=== PATIENT | male | born 1935 | race Caucasian/White ===

== ENCOUNTER 2017-11-17 11:32 | Inpatient (IN) | payer OTHER, MEDICARE ==
[~2017-11-17] VITALS: Ht 167.6 cm; Wt 86.2 kg
[2017-11-17] VITALS (9 sets, daily range): BP systolic 106–159; BP diastolic 62–81; PULSE 94–144; RESP 16–22; TEMP 99.6; O2SAT 93–97
[~2017-11-17 11:32] MED LIST: ATOR10 PO; CEFT500T PO; GLUCTAB; GUAI100S6 PO; PIOG15; PROVENTIL HFA INH; ZITH500T PO
[2017-11-17] MEDS ORDERED: SODIUM CHLORIDE 0.9% FLUSH 10 ML FLUSH IVF PRN (12:00)
[2017-11-17] MEDS ORDERED: SODIUM CHLORIDE 0.9% FLUSH 10 ML FLUSH IV FLUSH PRN ×2 (12:00→14:00)
--- NOTE | 2017-11-17 12:00 | PD ---
HPI Chief Complaint: Cardiac Complaint Time Seen by Provider: 11:49 Travel History International Travel<30 days: No Contact w/Intl Traveler<30days: No Traveled to known affect area: No History of Present Illness HPI 81-year-old male patient with history of atrial fibrillation, hypertension, diabetes, presents to the ER today because he states that he has not been feeling well over last few weeks, getting short of breath, and has been trying to follow-up with his primary care doctor, he has had some low-grade fevers as well, and primary care found that he was having fast heart rate in the 140s, and has sent him in for further evaluation. On initial evaluation by EMS, he was in A. fib with rapid ventricular response, he was given Cardizem 20. He denies any current chest pains, abdominal pains, vomiting, or other issues. Modifying Factors: None Associated Signs & Symptoms: Not feeling well, palpitations, dyspnea on exertion , coughing, low-grade fevers Risk Factors: Elderly, A. fib PFSH Past Medical History Arthritis: Yes Atrial Fibrillation: Yes Heart Rhythm Problems: Yes Cancer: No Cardiovascular Problems: Yes High Cholesterol: Yes Chest Pain: No Congestive Heart Failure: No Cerebrovascular Accident: No Diabetes: Yes Patient Takes Glucophage: Yes Diminished Hearing: Yes ([place]) Endocrine: Yes Genitourinary: No Hypertension: Yes Musculoskeletal: Yes Neurologic: No Psychiatric: No Reproductive: No Respiratory: No Past Surgical History Abdominal Surgery: No Cardiac Surgery: No Ear Surgery: No Endocrine Surgery: No Eye Surgery: No Genitourinary Surgery: No Gynecologic Surgery: No Oral Surgery: No Thoracic Surgery: No Social History Alcohol Use: Yes (W[place] OCCASSIONALLY) Tobacco Use: No Substance Use: No Allergies-Medications (Allergen,Severity, Reaction): Coded Allergies: No Known Allergies (Verified Allergy, Unknown, 11/17/17) Reported Meds & Prescriptions Reported Meds & Active Scripts Active Reported Triamcinolone Topical (Triamcinolone Acetonide) 0.1 % Oint 1 Applic TOPICAL BID Meclizine (Meclizine HCl) 12.5 Mg Tab 12.5 Mg PO TID PRN Polyethylene Glycol 3350 Powder (Polyethylene Glycol) 17 Gram Pow 17 Gm PO DAILY Docusate Sodium 100 Mg Cap 100 Mg PO DAILY Enalapril (Enalapril Maleate) 2.5 Mg Tab 2.5 Mg PO DAILY Simvastatin 40 Mg Tab 40 Mg PO HS Ketoconazole Topical 2% Cream 1 Applic TOPICAL BID [place] Respiclick Inh (Fluticasone Propionate) 55 Mcg/Actuation Aer.pow.ba 55 Mg INH BID Aspirin 325 Mg Tab 325 Mg PO DAILY Propranolol (Propranolol HCl) 20 Mg Tab 20 Mg PO BID Sertraline (Sertraline HCl) 100 Mg Tab 100 Mg PO DAILY Januvia (Sitagliptin Phosphate) 100 Mg Tab 100 Mg PO DAILY Metformin (Metformin HCl) 850 Mg Tab 850 Mg PO TIDPC Betamethasone Valerate Topical 0.1% Cream 1 Applic TOPICAL BID Trazodone (Trazodone HCl) 50 Mg Tab 50 Mg PO HS Buspirone (Buspirone HCl) 5 Mg Tab 5 Mg PO TID Primidone 50 Mg Tab 50 Mg PO BID Prednisone 5 Mg Tab 5 Mg PO DAILY Tessalon Perles (Benzonatate) 100 Mg Cap 100 Mg PO TID PRN Levaquin (Levofloxacin) 500 Mg Tablet 500 Mg PO DAILY Review of Systems Except as stated in HPI: all other systems reviewed are Neg Physical Exam Narrative GENERAL: Well-developed elderly male patient currently in mild distress. Awake and oriented 3. SKIN: Focused skin assessment warm/dry. HEAD: Atraumatic. Normocephalic. EYES: Pupils equal and round. No scleral icterus. No injection or drainage. ENT: No nasal bleeding or discharge. Mucous membranes pink and moist. NECK: Trachea midline. No JVD. Supple. CARDIOVASCULAR: Fast and irregularly irregular. RESPIRATORY: No accessory muscle use. Decreased throughout. Breath sounds equal bilaterally. GASTROINTESTINAL: Abdomen soft, non-tender, nondistended. Hepatic and splenic margins not palpable. MUSCULOSKELETAL: No obvious deformities. No clubbing. No cyanosis. No edema. NEUROLOGICAL: Awake and alert. No obvious cranial nerve deficits. Motor grossly within normal limits. Normal speech. PSYCHIATRIC: Appropriate mood and affect; insight and judgment normal. Data Data Last Documented VS Vital Signs Date Time Temp Pulse Resp B/P (MAP) Pulse Ox O2 Delivery O2 Flow Rate FiO2 11/17/17 13:17 117 18 153/72 (99) 96 Nasal Cannula 2.00 11/17/17 12:28 95 11/17/17 11:40 99.6 Orders Orders Ecg Monitoring (11/17/17 11:49) Blood Pressure (11/17/17 11:49) Iv Access Insert/Monitor (11/17/17 11:49) Oximetry (11/17/17 11:49) Vital Signs (11/17/17 11:49) Diltiazem Inj (Cardizem Inj) (11/17/17 12:00) Sodium Chloride 0.9% Flush (Ns Flush) (11/17/17 12:00) Complete Blood Count With Diff (11/17/17 11:49) Comprehensive Metabolic Panel (11/17/17 11:49) B-Type Natriuretic Peptide (11/17/17 11:49) Act Partial Throm Time (Ptt) (11/17/17 11:49) Prothrombin Time / Inr (Pt) (11/17/17 11:49) Magnesium (Mg) (11/17/17 11:49) Ckmb (Isoenzyme) Profile (11/17/17 11:49) Troponin I (11/17/17 11:49) Blood Culture (11/17/17 11:49) Electrocardiogram (11/17/17 11:49) Oxygen Administration (11/17/17 11:49) Chest, Single Ap (11/17/17 11:49) Sodium Chloride 0.9% Flush (Ns Flush) (11/17/17 12:00) CKMB (11/17/17 11:55) CKMB% (11/17/17 11:55) Sodium Chlorid 0.9% 500 Ml Inj (Ns 500 M (11/17/17 13:00) Ceftriaxone Inj (Rocephin Inj) (11/17/17 12:57) Azithromycin Inj (Zithromax Inj) (11/17/17 12:57) Admit Order (Ed Use Only) (11/17/17 13:59) Labs Laboratory Tests Test 11/17/17 11:55 White Blood Count 13.0 TH/MM3 Red Blood Count 5.12 MIL/MM3 Hemoglobin 14.9 GM/DL Hematocrit 44.9 % Mean Corpuscular Volume 87.6 FL Mean Corpuscular Hemoglobin 29.1 PG Mean Corpuscular Hemoglobin Concent 33.3 % Red Cell Distribution Width 14.6 % Platelet Count 259 TH/MM3 Mean Platelet Volume 7.7 FL Neutrophils (%) (Auto) 75.9 % Lymphocytes (%) (Auto) 9.5 % Monocytes (%) (Auto) 11.6 % Eosinophils (%) (Auto) 2.5 % Basophils (%) (Auto) 0.5 % Neutrophils # (Auto) 9.9 TH/MM3 Lymphocytes # (Auto) 1.2 TH/MM3 Monocytes # (Auto) 1.5 TH/MM3 Eosinophils # (Auto) 0.3 TH/MM3 Basophils # (Auto) 0.1 TH/MM3 CBC Comment DIFF FINAL Differential Comment Prothrombin Time 11.4 SEC Prothromb Time International Ratio 1.1 RATIO Activated Partial Thromboplast Time 32.0 SEC Blood Urea Nitrogen 30 MG/DL Creatinine 1.65 MG/DL Random Glucose 243 MG/DL Total Protein 8.1 GM/DL Albumin 3.4 GM/DL Calcium Level 8.8 MG/DL Magnesium Level 1.9 MG/DL Alkaline Phosphatase 61 U/L Aspartate Amino Transf (AST/SGOT) 48 U/L Alanine Aminotransferase (ALT/SGPT) 45 U/L Total Bilirubin 0.4 MG/DL Sodium Level 141 MEQ/L Potassium Level 4.6 MEQ/L Chloride Level 108 MEQ/L Carbon Dioxide Level 22.5 MEQ/L Anion Gap 11 MEQ/L Estimat Glomerular Filtration Rate 40 ML/MIN Total Creatine Kinase 105 U/L Creatine Kinase MB 2.5 NG/ML Troponin I 0.12 NG/ML B-Type Natriuretic Peptide 151 PG/ML MDM Medical Decision Making Medical Screen Exam Complete: Yes Emergency Medical Condition: Yes Medical Record Reviewed: Yes Interpretation(s) EKG shows A. fib with rapid ventricular response at rate 119 bpm. No signs of acute ST elevations or depressions. Laboratory Tests Test 11/17/17 11:55 White Blood Count 13.0 TH/MM3 (4.0-11.0) Neutrophils (%) (Auto) 75.9 % (16.0-70.0) Monocytes (%) (Auto) 11.6 % (0.0-8.0) Neutrophils # (Auto) 9.9 TH/MM3 (1.8-7.7) Monocytes # (Auto) 1.5 TH/MM3 (0-0.9) Activated Partial Thromboplast Time 32.0 SEC (24.3-30.1) Blood Urea Nitrogen 30 MG/DL (7-18) Creatinine 1.65 MG/DL (0.60-1.30) Random Glucose 243 MG/DL (74-106) Aspartate Amino Transf (AST/SGOT) 48 U/L (15-37) Chloride Level 108 MEQ/L (98-107) Estimat Glomerular Filtration Rate 40 ML/MIN (>89) Troponin I 0.12 NG/ML (0.02-0.05) B-Type Natriuretic Peptide 151 PG/ML (0-100) Last 24 hours Impressions Chest X-Ray 11/17/17 1149 Signed Impressions: Service Date/Time: Friday, November 17, 2017 12:16 - CONCLUSION: Mild bibasilar atelectasis and/or infiltrates. Vasu Perdomo MD Differential Diagnosis Dysrhythmias versus CHF versus pneumonia Narrative Course Lab work shows leukocytosis and chest x-ray shows bibasilar which was questionable for underlying pneumonia. IV antibiotics were initiated after cultures were drawn. Patient was fairly tachycardic with A. fib with ventricular response. Cardizem drip was initiated on the patient with some improvement in rate. At this point, plan would be to admit the patient for further treatment. Case was discussed with Dr. Francois for admission. Diagnosis Primary Impression: Atrial fibrillation with RVR Additional Impression: Pneumonia Admitting Information Admitting Physician Requests: Admit Sheba Herrera MD Nov 17, 2017 12:00
[2017-11-17 12:15] LABS: AUTOMATED NEUTROPHIL # 9.9 TH/MM3 (1.8-7.7); BASOPHIL # 0.1 TH/MM3 (0-0.2); BASOPHIL % 0.5 % (0.0-2.0); EOSINOPHIL # 0.3 TH/MM3 (0-0.4); EOSINOPHIL % 2.5 % (0.0-4.0); HEMATOCRIT 44.9 % (39.0-51.0); HEMOGLOBIN 14.9 GM/DL (13.0-17.0); LYMPH % 9.5 % (9.0-44.0); LYMPHOCYTE # 1.2 TH/MM3 (1.0-4.8); MEAN CELL VOLUME 87.6 FL (80.0-100.0); MEAN CORPUSCULAR HEMOGLOBIN 29.1 PG (27.0-34.0); MEAN CORPUSCULAR HGB CONC 33.3 % (32.0-36.0); MEAN PLATELET VOLUME 7.7 FL (7.0-11.0); MONO % 11.6 % (0.0-8.0); MONOCYTE # 1.5 TH/MM3 (0-0.9); NEUT % 75.9 % (16.0-70.0); PLATELET COUNT 259 TH/MM3 (150-450); RED BLOOD COUNT 5.12 MIL/MM3 (4.50-5.90); RED CELL DISTRIBUTION WIDTH 14.6 % (11.6-17.2)
[2017-11-17 12:23] LABS: INTERNATIONAL NORMALIZED RATIO 1.1 RATIO; PROTHROMBIN TIME - PATIENT 11.4 SEC (9.8-11.6)
[2017-11-17] MEDS: DILTIAZEM INJ 125 MG in SODIUM CHLORIDE 0.9% INJ 100 ML IV PRN ×2 (12:27→20:06)
[2017-11-17 12:32] LABS: ALBUMIN 3.4 GM/DL (3.4-5.0); ALT (GPT) 45 U/L (12-78); AST (GOT) 48 U/L (15-37); BICARBONATE 22.5 MEQ/L (21.0-32.0); BLOOD UREA NITROGEN 30 MG/DL (7-18); CALCIUM 8.8 MG/DL (8.5-10.1); CHLORIDE 108 MEQ/L (98-107); CREATININE 1.65 MG/DL (0.60-1.30); GLOMERULAR FILTRATION RATE 40 ML/MIN (>89); GLUCOSE,RANDOM 243 MG/DL (74-106); MAGNESIUM 1.9 MG/DL (1.5-2.5); SODIUM (NA) 141 MEQ/L (136-145)
[2017-11-17 12:36] LABS: ALKALINE PHOSPHATASE 61 U/L (45-117); TOTAL BILIRUBIN ADULT 0.4 MG/DL (0.2-1.0); TOTAL PROTEIN 8.1 GM/DL (6.4-8.2); TROPONIN I 0.12 NG/ML (0.02-0.05)
--- NOTE | 2017-11-17 12:51 | RADRPT ---
EXAM DATE/TIME: 11/17/2017 12:16 [facility] COMPARISON: No previous studies available for comparison. INDICATIONS : Cold x2 weeks, short of breath x1 month. MEDICAL HISTORY : None. SURGICAL HISTORY : None. ENCOUNTER: Initial ACUITY: 1 month PAIN SCORE: 1/10 LOCATION: Bilateral chest FINDINGS: Mild bibasilar atelectasis and/or infiltrates are noted. The heart is normal. The pulmonary vascular pattern is normal. CONCLUSION: Mild bibasilar atelectasis and/or infiltrates. Vasu Perdomo MD on November 17, 2017 at 12:49 Board Certified Radiologist. This report was verified electronically.
[2017-11-17] MEDS ORDERED: cefTRIAXone INJ 2,000 MG in SODIUM CHLORIDE 0.9% INJ 100 ML IV STA (12:57)
[2017-11-17] MEDS ORDERED: AZITHROMYCIN INJ 500 MG in SODIUM CHLOR 0.9% 250 ML INJ 250 ML IV STA (12:57)
[2017-11-17] MEDS ORDERED: SODIUM CHLORID 0.9% 500 ML INJ 500 ML IV ONE (13:00)
[2017-11-17] MEDS ORDERED: TRIAM.1%T TOPICAL (13:49)
[2017-11-17] MEDS ORDERED: TRAZ50TA12 PO (13:49)
[2017-11-17] MEDS ORDERED: KETO2CRE TOPICAL (13:49)
[2017-11-17] MEDS ORDERED: ASPI-183 PO (13:49)
[2017-11-17] MEDS ORDERED: LEVA500T33 PO (13:49)
[2017-11-17] MEDS ORDERED: DOCU100C15 PO (13:49)
[2017-11-17] MEDS ORDERED: ENAL2.5T PO (13:49)
[2017-11-17] MEDS ORDERED: PROP20TA3 PO (13:49)
[2017-11-17] MEDS ORDERED: POLY17S PO (13:49)
[2017-11-17] MEDS ORDERED: METF850T PO (13:49)
[2017-11-17] MEDS ORDERED: MECL12.574 PO (13:49)
[2017-11-17] MEDS ORDERED: BENZ100 PO (13:49)
[2017-11-17] MEDS ORDERED: PRED5TAB PO (13:49)
[2017-11-17] MEDS ORDERED: BETA0.1C TOPICAL (13:49)
[2017-11-17] MEDS ORDERED: SERT-129 PO (13:49)
[2017-11-17] MEDS ORDERED: FLUT55AE INH (13:49)
[2017-11-17] MEDS ORDERED: PRIM50TA5 PO (13:49)
[2017-11-17] MEDS ORDERED: SITA1TAB2 PO (13:49)
[2017-11-17] MEDS ORDERED: SIMV40TA PO (13:49)
[2017-11-17] MEDS ORDERED: BUSP5TAB PO (13:49)
[2017-11-17] MEDS ORDERED: BISACODYL 10 MG SUPP RECTAL PRN (14:00)
[2017-11-17] MEDS ORDERED: NALOXONE HCL 0.4 MG/ML AMP IV PUSH PRN (14:00)
[2017-11-17] MEDS ORDERED: LACTULOSE SYRUP 20 GM/30 ML CUP PO PRN (14:00)
[2017-11-17] MEDS ORDERED: SENNOSIDES 8.6 MG TAB PO PRN (14:00)
[2017-11-17] MEDS ORDERED: MAGNESIUM HYDROXIDE SUSP 30 ML CUP PO PRN (14:00)
--- NOTE | 2017-11-17 14:19 | HHI.HP ---
[facility]ician Unknown Admission Diagnosis Sepsis/pneumonia/A. fib with RVR Diagnoses: Chief Complaint: Shortness of breath. Travel History International Travel<30 Days: No Contact w/Intl Traveler <30 Da: No Traveled to Known Affected Are: No History of Present Illness 81-year-old male with a medical history significant for atrial fibrillation, diabetes, hypertension who presented to the emergency room with complaint of shortness of breath. Patient reports starting about 6 days ago, he started to have cold symptoms including cough, fever and chills. He reports that over the past few days he continued to get worse with increasing shortness of breath and spasmodic cough. He was seen by his PCP and was found to have a heart rate of around 140s and he was referred to the emergency room. EMS found the patient to be in A. fib with RVR. He was given 20 mg of IV Cardizem. On my evaluation , the patient is still in A. fib with RVR on 15 mcg of Cardizem. He reports shortness of breath but denies chest pressure. He is a poor historian and does not know the medications he is taking. Review of Systems Constitutional: COMPLAINS OF: Fever, Chills Respiratory: COMPLAINS OF: Cough, Shortness of breath Psychiatric: COMPLAINS OF: Anxiety Except as stated in HPI: all other systems reviewed are Neg Past Family Social History Past Medical History Atrial fibrillation Hypertension Diabetes Hyperlipidemia Essential tremors Anxiety/depression Past Surgical History Right knee surgery Reported Medications Reported Meds & Active Scripts Active Reported Triamcinolone Topical (Triamcinolone Acetonide) 0.1 % Oint 1 Applic TOPICAL BID Meclizine (Meclizine HCl) 12.5 Mg Tab 12.5 Mg PO TID PRN Polyethylene Glycol 3350 Powder (Polyethylene Glycol) 17 Gram Pow 17 Gm PO DAILY Docusate Sodium 100 Mg Cap 100 Mg PO DAILY Enalapril (Enalapril Maleate) 2.5 Mg Tab 2.5 Mg PO DAILY Simvastatin 40 Mg Tab 40 Mg PO HS Ketoconazole Topical 2% Cream 1 Applic TOPICAL BID [place] Respiclick Inh (Fluticasone Propionate) 55 Mcg/Actuation Aer.pow.ba 55 Mg INH BID Aspirin 325 Mg Tab 325 Mg PO DAILY Propranolol (Propranolol HCl) 20 Mg Tab 20 Mg PO BID Sertraline (Sertraline HCl) 100 Mg Tab 100 Mg PO DAILY Januvia (Sitagliptin Phosphate) 100 Mg Tab 100 Mg PO DAILY Metformin (Metformin HCl) 850 Mg Tab 850 Mg PO TIDPC Betamethasone Valerate Topical 0.1% Cream 1 Applic TOPICAL BID Trazodone (Trazodone HCl) 50 Mg Tab 50 Mg PO HS Buspirone (Buspirone HCl) 5 Mg Tab 5 Mg PO TID Primidone 50 Mg Tab 50 Mg PO BID Prednisone 5 Mg Tab 5 Mg PO DAILY Tessalon Perles (Benzonatate) 100 Mg Cap 100 Mg PO TID PRN Levaquin (Levofloxacin) 500 Mg Tablet 500 Mg PO DAILY Allergies: Coded Allergies: No Known Allergies (Verified Allergy, Unknown, 11/17/17) Family History Reviewed and found to be noncontributory. Social History Quit using tobacco since 1984. Admits to occasional wine. Physical Exam Vital Signs Vital Signs Date Time Temp Pulse Resp B/P (MAP) Pulse Ox O2 Delivery O2 Flow Rate FiO2 11/17/17 13:17 117 18 153/72 (99) 96 Nasal Cannula 2.00 11/17/17 12:28 140 18 159/80 (106) Nasal Cannula 95 11/17/17 12:27 115 167/69 11/17/17 12:03 97 Nasal Cannula 2.00 11/17/17 12:03 97 Nasal Cannula 2.00 11/17/17 11:40 103 22 97 Nasal Cannula 2.00 11/17/17 11:40 99.6 138 20 140/62 (88) 94 Nasal Cannula 2.00 Physical Exam GENERAL: Elderly female in mild respiratory distress SKIN: No rashes, ecchymoses or lesions. Cool and dry. HEAD: Atraumatic. Normocephalic. No temporal or scalp tenderness. EYES: Pupils equal round and reactive. Extraocular motions intact. No scleral icterus. No injection or drainage. ENT: Nose without bleeding, purulent drainage or septal hematoma. Throat without erythema, tonsillar hypertrophy or exudate. Uvula midline. Airway patent. NECK: Trachea midline. No JVD or lymphadenopathy. Supple, nontender, no meningeal signs. CARDIOVASCULAR: Rate around 140s and irregular rhythm without murmurs, gallops, or rubs. RESPIRATORY: Diffuse rhonchi and rales. Spasmodic cough. GASTROINTESTINAL: Abdomen soft, non-tender, nondistended. No hepato-splenomegaly , or palpable masses. No guarding. MUSCULOSKELETAL: Extremities without clubbing, cyanosis, or edema. No joint tenderness, effusion, or edema noted. No calf tenderness. Negative Homans sign bilaterally. NEUROLOGICAL: Awake and alert. Cranial nerves II through XII intact. Motor and sensory grossly within normal limits. Five out of 5 muscle strength in all muscle groups. Normal speech. Laboratory Laboratory Tests Test 11/17/17 11:55 White Blood Count 13.0 Red Blood Count 5.12 Hemoglobin 14.9 Hematocrit 44.9 Mean Corpuscular Volume 87.6 Mean Corpuscular Hemoglobin 29.1 Mean Corpuscular Hemoglobin Concent 33.3 Red Cell Distribution Width 14.6 Platelet Count 259 Mean Platelet Volume 7.7 Neutrophils (%) (Auto) 75.9 Lymphocytes (%) (Auto) 9.5 Monocytes (%) (Auto) 11.6 Eosinophils (%) (Auto) 2.5 Basophils (%) (Auto) 0.5 Neutrophils # (Auto) 9.9 Lymphocytes # (Auto) 1.2 Monocytes # (Auto) 1.5 Eosinophils # (Auto) 0.3 Basophils # (Auto) 0.1 CBC Comment DIFF FINAL Differential Comment Prothrombin Time 11.4 Prothromb Time International Ratio 1.1 Activated Partial Thromboplast Time 32.0 Blood Urea Nitrogen 30 Creatinine 1.65 Random Glucose 243 Total Protein 8.1 Albumin 3.4 Calcium Level 8.8 Magnesium Level 1.9 Alkaline Phosphatase 61 Aspartate Amino Transf (AST/SGOT) 48 Alanine Aminotransferase (ALT/SGPT) 45 Total Bilirubin 0.4 Sodium Level 141 Potassium Level 4.6 Chloride Level 108 Carbon Dioxide Level 22.5 Anion Gap 11 Estimat Glomerular Filtration Rate 40 Total Creatine Kinase 105 Creatine Kinase MB 2.5 Troponin I 0.12 B-Type Natriuretic Peptide 151 Date/Time Source Procedure Growth Status 11/17/17 11:55 Blood Peripheral Aerobic Blood Culture Pending Received 11/17/17 11:55 Blood Peripheral Anaerobic Blood Culture Pending Received Result Diagram: 11/17/17 1155 11/17/17 1155 Imaging Last Impressions Chest X-Ray 11/17/17 1149 Signed Impressions: Service Date/Time: Friday, November 17, 2017 12:16 - CONCLUSION: Mild bibasilar atelectasis and/or infiltrates. MD Layo Mart VTE Risk Assessment Layo VTE Risk Assessment: Mod/High Risk (score >= 2) Caprini Risk Assessment Model Point Value = 1 Point Value = 2 Point Value = 3 Point Value = 5 Age 41-60 Minor surgery BMI > 25 kg/m2 Swollen legs Varicose veins or History of unexplained or recurrent spontaneous Oral contraceptives or hormone replacement Sepsis (< 1 month) Serious lung disease, including pneumonia (< 1 month) Abnormal pulmonary function Acute myocardial infarction Congestive heart failure (< 1 month) History of inflammatory bowel disease Medical patient at bed rest Age 61-74 Arthroscopic surgery Major open surgery (> 45 min) Laparoscopic surgery (> 45 min) Malignancy Confined to bed (> 72 hours) Immobilizing plaster cast Central venous access Age >= 75 History of VTE Family history of VTE Factor V Leiden Prothrombin [id number] Lupus anticoagulant Anticardiolipin antibodies Elevated serum homocysteine Heparin-induced thrombocytopenia Other congenital or acquired thrombophilia Stroke (< 1 month) Elective arthroplasty Hip, pelvis, or leg fracture Acute spinal cord injury (< 1 month) Prophylaxis Regimen Total Risk Factor Score Risk Level Prophylaxis Regimen 0-1 Low Early ambulation 2 Moderate Order ONE of the following: *Sequential Compression Device (SCD) *Heparin 5000 units SQ BID 3-4 Higher Order ONE of the following medications: *Heparin 5000 units SQ TID *Enoxaparin/Lovenox 40 mg SQ daily (WT < 150 kg, CrCl > 30 mL/min) *Enoxaparin/Lovenox 30 mg SQ daily (WT < 150 kg, CrCl > 10-29 mL/min) *Enoxaparin/Lovenox 30 mg SQ BID (WT < 150 kg, CrCl > 30 mL/min) AND/OR *Sequential Compression Device (SCD) 5 or more Highest Order ONE of the following medications: *Heparin 5000 units SQ TID (Preferred with Epidurals) *Enoxaparin/Lovenox 40 mg SQ daily (WT < 150 kg, CrCl > 30 mL/min) *Enoxaparin/Lovenox 30 mg SQ daily (WT < 150 kg, CrCl > 10-29 mL/min) *Enoxaparin/Lovenox 30 mg SQ BID (WT < 150 kg, CrCl > 30 mL/min) AND *Sequential Compression Device (SCD) Assessment and Plan Problem List: (1) Atrial fibrillation with RVR ICD Code: I48.91 - Unspecified atrial fibrillation Status: Acute Plan: Afiv with RVR in the setting of pneumonia. Rate still uncontrolled s/p loading dose of Cardizem. Repeat Loading dose. Continue drip. Admit to [facility]. Consult Cardiology. (2) Hypertension ICD Code: I10 - Essential (primary) hypertension Plan: Hold JODI inhibitors for now given acute renal failure. BP currently acceptable. Clonidine as needed. (3) Diabetes ICD Code: E11.9 - Type 2 diabetes mellitus without complications Plan: Hold home medications. Sliding scale insulin with Accu-Cheks. (4) Pneumonia ICD Code: J18.9 - Pneumonia, unspecified organism Status: Acute Plan: Chest x-ray personally reviewed. Bibasilar infiltrates noted. Continue Rocephin and azithromycin. (5) Acute renal failure ICD Code: N17.9 - Acute kidney failure, unspecified Plan: Probably secondary to prerenal azotemia/hypoperfusion IV hydration. Follow BMP in a.m. Discussed Condition With ED physician and RN. Physician Certification 2 Midnight Certification Type: Admission for Inpatient Services Order for Inpatient Services The services are ordered in accordance with Medicare regulations or non- Medicare payer requirements, as applicable. In the case of services not specified as inpatient-only, they are appropriately provided as inpatient services in accordance with the 2-midnight benchmark. Estimated LOS (days): 5 days is the estimated time the patient will need to remain in the hospital, assuming treatment plan goals are met and no additional complications. Post-Hospital Plan: Not yet determined Problem Qualifiers (1) Diabetes: (2) Pneumonia: Shaun Francois MD Nov 17, 2017 14:19
[2017-11-17] MEDS ORDERED: DILTIAZEM HCL 25 MG/5 ML VIAL IV ONE (14:45)
[2017-11-17] MEDS ORDERED: SODIUM CHLOR 0.9% 1000 ML INJ 1,000 ML IV SCH (15:00)
[2017-11-17] MEDS: HEPARIN SODIUM - SQ 10,000 UNITS/ML VIAL SQ SCH ×2 (16:18→22:57)
[2017-11-17] MEDS ORDERED: AMIODARONE INJ 150 MG in DEXTROSE 5% IN WATER 100ML INJ 97 ML IV ONE ×2 (18:30)
--- NOTE | 2017-11-17 18:46 | MB ---
cc: Olga Lidia Mcneal MD DATE: 11/17/2017 REASON FOR CONSULTATION: New onset atrial fibrillation with rapid ventricular rate. HISTORY OF PRESENT ILLNESS: Mr. Alexander is an 81-year-old man who does have a history of hypertension, hyperlipidemia, diabetes and previously, palpitations. He presented to the emergency room today with complaints of shortness of breath. The patient was found to not only be in AFib with RVR, but to have sepsis with pneumonia. The patient does continue to complain of shortness of breath. PAST MEDICAL HISTORY: Significant for hypertension, hyperlipidemia, diabetes, depression, carotid artery disease, aortic atherosclerosis, interstitial lung disease, obesity, organic brain syndrome, vertigo, noncompliance. Of note, the patient is a DNR. OUTPATIENT MEDICATIONS: Include triamcinolone, meclizine, docusate, Enalapril, simvastatin, ketoconazole, aspirin, propranolol, sertraline, Januvia, metformin, betamethasone, trazodone, buspirone, primidone, prednisone, Tessalon Perles. SOCIAL HISTORY: The patient is a former smoker and does occasionally use alcohol. FAMILY HISTORY: Unable. ALLERGIES: NO KNOWN DRUG ALLERGIES. REVIEW OF SYSTEMS: Except as mentioned in the HPI, all 12 systems are negative. PHYSICAL EXAMINATION: VITAL SIGNS: Currently are 131, 18, 137/66. GENERAL: He is an obese man, who is in no apparent distress. NECK: Free from JVD. LUNGS: Bilateral wheezing. CARDIOVASCULAR: He has an irregularly irregular rhythm that is tachycardic. ABDOMEN: Soft. EXTREMITIES: Free from edema. DIAGNOSTIC DATA: Telemetry shows atrial fibrillation with rapid ventricular rate of 140 beats a minute. LABORATORY DATA: Significant for a BUN of 30, creatinine of 1.6. Troponin of 0.12 and a BNP of 151 with a white count of 13. IMPRESSIONS: 1. New onset atrial fibrillation. The patient does have atrial fibrillation with rapid ventricular response. This is no doubt being exacerbated by the sepsis with pneumonia and as well, he is likely a bit dehydrated. The patient is currently on 15 mg an hour of diltiazem. Thus, at this point, I am going to also add the amiodarone. Regarding anticoagulation, the patient has a high CHADS-VASc score. Compliance may be of some concern. At this point, he should at least be on heparin or lovenox until we can establish what his outpatient regimen will be. As he is a do not resuscitate, I would not pursue evaluation with stress testing. 2. Pneumonia. This will be managed by the primary team. 3. Elevated troponin felt secondary to AF with RVR and renal insufficiency. MD WENDY Lawson/KALEN , 06:07 PM , 06:45 PM [place]
[2017-11-17] MEDS ORDERED: AMIODARONE INJ 450 MG in SODIUM CHLOR 0.9% (EXCEL) INJ 241 ML IV PRN (19:00)
[2017-11-17] MEDS ORDERED: AMIODARONE INJ 450 MG in DEXTROSE 5% IN WATE(EXCEL) INJ 241 ML IV PRN ×2 (19:30)
[2017-11-17] MEDS ORDERED: DEXTROSE 50% IN WATER 50 ML VIAL(D50) IV PUSH PRN (20:00)
[2017-11-17] MEDS ORDERED: GLUCAGON 1 MG/ML VIAL OTHER PRN (20:00)
[2017-11-17] MEDS ORDERED: cloNIDine HCL 0.1 MG TAB PO PRN (20:15)
[2017-11-17] MEDS: PRAVASTATIN SOD 80 MG TAB PO SCH (20:42)
[2017-11-17] MEDS: traZODone HCL 50 MG TAB PO SCH (20:42)
[2017-11-17] MEDS: PROPRANOLOL HCL 20 MG TAB PO SCH (20:42)
[2017-11-17] MEDS: INSULIN ASPART SUPPLEMENTAL SCALE SQ SCH (20:43)
[2017-11-17] MEDS ORDERED: SODIUM CHLORIDE 0.9% FLUSH 10 ML FLUSH IV FLUSH SCH (21:00)
[2017-11-17] MEDS: PRIMIDONE 50 MG TAB PO SCH (21:15)
[2017-11-17] MEDS: RESP: ALBUTEROL 2.5 MG/IPRATROPIUM 0.5 MG NEB (PRN) NEB (22:31)
[2017-11-18] VITALS (27 sets, daily range): BP systolic 108–152; BP diastolic 47–95; PULSE 68–112; RESP 18; TEMP 97.8–98.8; O2SAT 92–98
[2017-11-18] MEDS: HEPARIN SODIUM - SQ 10,000 UNITS/ML VIAL SQ SCH ×2 (05:32→12:55)
[2017-11-18 06:33] LABS: HEMATOCRIT 41.6 % (39.0-51.0); HEMOGLOBIN 13.8 GM/DL (13.0-17.0); MEAN CELL VOLUME 87.6 FL (80.0-100.0); MEAN CORPUSCULAR HEMOGLOBIN 29.1 PG (27.0-34.0); MEAN CORPUSCULAR HGB CONC 33.2 % (32.0-36.0); MEAN PLATELET VOLUME 7.9 FL (7.0-11.0); PLATELET COUNT 241 TH/MM3 (150-450); RED BLOOD COUNT 4.76 MIL/MM3 (4.50-5.90); RED CELL DISTRIBUTION WIDTH 14.7 % (11.6-17.2); WHITE BLOOD COUNT 8.7 TH/MM3 (4.0-11.0)
[2017-11-18 07:23] LABS: BICARBONATE 21.4 MEQ/L (21.0-32.0); CREATININE 1.45 MG/DL (0.60-1.30)
[2017-11-18] MEDS: SERTRALINE HCL 100 MG TAB PO SCH (08:03)
[2017-11-18] MEDS: PROPRANOLOL HCL 20 MG TAB PO SCH ×2 (08:03→20:59)
[2017-11-18] MEDS: busPIRone HCL 5 MG TAB PO SCH ×3 (08:03→17:10)
[2017-11-18] MEDS: AZITHROMYCIN 250 MG TAB PO SCH (08:03)
[2017-11-18] MEDS: INSULIN ASPART SUPPLEMENTAL SCALE SQ SCH ×4 (08:05→20:58)
[2017-11-18] MEDS: cefTRIAXone INJ 1,000 MG in SODIUM CHLORIDE 0.9% INJ 100 ML IV SCH (08:18)
[2017-11-18] MEDS: PRIMIDONE 50 MG TAB PO SCH ×2 (09:41→20:58)
--- NOTE | 2017-11-18 12:10 | HHI.PR ---
Subjective Remarks Rate controlled this morning on amiodarone and Cardizem drip. Patient reports shortness of breath has improved. Objective Vitals Vital Signs Date Time Temp Pulse Resp B/P (MAP) Pulse Ox O2 Delivery O2 Flow Rate FiO2 11/18/17 11:56 97.8 80 18 119/50 (73) 97 11/18/17 08:00 98.0 100 18 122/70 (87) 94 11/18/17 06:02 85 11/18/17 05:05 88 11/18/17 04:31 94 11/18/17 03:00 90 11/18/17 03:00 98.8 101 119/78 (92) 93 11/18/17 02:00 94 11/18/17 01:26 98.0 97 127/47 (73) 92 11/18/17 00:06 85 20 110/72 (85) 94 Nasal Cannula 3.00 11/17/17 22:00 94 22 106/80 (89) 93 Nasal Cannula 3.00 11/17/17 20:22 118 140/70 11/17/17 20:06 131 140/70 11/17/17 19:23 142 16 142/65 (90) 97 Nasal Cannula 3.00 11/17/17 19:23 147 142/65 11/17/17 18:14 144 22 139/78 (98) 95 Nasal Cannula 2.00 11/17/17 15:51 131 18 137/66 (89) 95 Nasal Cannula 2.00 11/17/17 14:29 128 22 128/81 (97) 95 Nasal Cannula 2.00 11/17/17 13:17 117 18 153/72 (99) 96 Nasal Cannula 2.00 11/17/17 12:28 140 18 159/80 (106) Nasal Cannula 95 11/17/17 12:27 115 167/69 I/O 11/17/17 11/17/17 11/17/17 11/18/17 11/18/17 11/18/17 07:00 15:00 23:00 07:00 15:00 23:00 Intake Total 100 ml 950 ml 240 ml Output Total 400 ml Balance 100 ml 950 ml -160 ml Intake Oral 240 ml IV Total 100 ml 950 ml Output Urine Total 400 ml Result Diagram: 11/18/17 0525 11/18/17524 Objective Remarks GENERAL: Elderly male in mild respiratory distress CARDIOVASCULAR: Rate around 80s and irregular rhythm without murmurs, gallops, or rubs. RESPIRATORY: Diffuse rhonchi and rales. Spasmodic cough. GASTROINTESTINAL: Abdomen soft, non-tender, nondistended. No hepato-splenomegaly , or palpable masses. No guarding. MUSCULOSKELETAL: Extremities without clubbing, cyanosis, or edema. No joint tenderness, effusion, or edema noted. No calf tenderness. Negative Homans sign bilaterally. NEUROLOGICAL: Awake and alert. Cranial nerves II through XII intact. Motor and sensory grossly within normal limits. Five out of 5 muscle strength in all muscle groups. Normal speech. A/P Problem List: (1) Atrial fibrillation with RVR ICD Code: I48.91 - Unspecified atrial fibrillation Status: Acute Plan: Afiv with RVR in the setting of pneumonia. Rate is now controlled. s/p lV Cardizem and amiodarone drip. Transition to oral Cardizem and amiodarone per cardiology. CHADS-VASC score >3 Start Eliquis low dose given renal insufficiency and advanced age. (2) Hypertension ICD Code: I10 - Essential (primary) hypertension Plan: Hold JODI inhibitors for now given acute renal failure. BP currently acceptable. Clonidine as needed. (3) Diabetes ICD Code: E11.9 - Type 2 diabetes mellitus without complications Plan: Hold home medications. Sliding scale insulin with Accu-Cheks. (4) Pneumonia ICD Code: J18.9 - Pneumonia, unspecified organism Status: Acute Plan: Chest x-ray personally reviewed. Bibasilar infiltrates noted. Continue Rocephin and azithromycin. (5) Acute renal failure ICD Code: N17.9 - Acute kidney failure, unspecified Plan: Probably secondary to prerenal azotemia/hypoperfusion IV hydration. Improving. Follow BMP in a.m. Problem Qualifiers (1) Diabetes: (2) Pneumonia: Shaun Francois MD Nov 18, 2017 12:10
--- NOTE | 2017-11-18 12:21 | PD.CARD.PN ---
Subjective Subjective Remarks PT reports still SHOB Objective Medications Current Medications Medications (Trade) Dose Ordered Sig/Flor Route Start Time Stop Time Status Last Admin Diltiazem HCl 125 mg/Sodium Chloride 125 ml @ 5 mls/hr TITRATE PRN IV 11/17/17 12:00 11/17/17 20:06 (NS Flush) 2 ml UNSCH PRN IV FLUSH 11/17/17 12:00 (NS Flush) 2 ml UNSCH PRN IVF 11/17/17 12:00 (Narcan Inj) 0.4 mg UNSCH PRN IV PUSH 11/17/17 14:00 (Milk Of Magnesia Liq) 30 ml Q12H PRN PO 11/17/17 14:00 (Senokot) 17.2 mg Q12H PRN PO 11/17/17 14:00 (Dulcolax Supp) 10 mg DAILY PRN RECTAL 11/17/17 14:00 (Lactulose Liq) 30 ml DAILY PRN PO 11/17/17 14:00 (Heparin Inj) 5,000 units Q8H SQ 11/17/17 15:00 11/18/17 05:32 Ceftriaxone Sodium 1000 mg/ Sodium Chloride 100 ml @ 200 mls/hr Q24H IV 11/18/17 09:00 11/18/17 08:18 (Zithromax) 500 mg DAILY PO 11/18/17 09:00 11/18/17 08:03 (Duoneb Neb) 1 ampule Q4HR NEB PRN NEB 11/17/17 17:00 11/17/17 22:31 Amiodarone HCl 450 mg/Sodium Chloride 250 ml @ 33.33 mls/ hr Q7H31M PRN IV 11/17/17 19:00 11/17/17 20:22 (Buspar) 5 mg TID PO 11/18/17 09:00 11/18/17 11:52 (Mysoline) 50 mg BID PO 11/17/17 21:00 11/18/17 09:41 (Zoloft) 100 mg DAILY PO 11/18/17 09:00 11/18/17 08:03 (Desyrel) 50 mg HS PO 11/17/17 21:00 11/17/17 20:42 (Pravachol) 80 mg HS PO 11/17/17 21:00 11/17/17 20:42 (D50w (Vial) Inj) 50 ml UNSCH PRN IV PUSH 11/17/17 20:00 (Glucagon Inj) 1 mg UNSCH PRN OTHER 11/17/17 20:00 (NovoLOG SUPPLEMENTAL SCALE) 1 ACHS SLIDING SCALE SQ 11/17/17 21:00 11/18/17 11:52 (Inderal) 20 mg BID PO 11/17/17 21:00 11/18/17 08:03 (Catapres) 0.1 mg Q6H PRN PO 11/17/17 20:15 Vital Signs / I&O Vital Signs Date Time Temp Pulse Resp B/P (MAP) Pulse Ox O2 Delivery O2 Flow Rate FiO2 11/18/17 11:56 97.8 80 18 119/50 (73) 97 11/18/17 08:00 98.0 100 18 122/70 (87) 94 11/18/17 06:02 85 11/18/17 05:05 88 11/18/17 04:31 94 11/18/17 03:00 90 11/18/17 03:00 98.8 101 119/78 (92) 93 11/18/17 02:00 94 11/18/17 01:26 98.0 97 127/47 (73) 92 11/18/17 00:06 85 20 110/72 (85) 94 Nasal Cannula 3.00 11/17/17 22:00 94 22 106/80 (89) 93 Nasal Cannula 3.00 11/17/17 20:22 118 140/70 11/17/17 20:06 131 140/70 11/17/17 19:23 142 16 142/65 (90) 97 Nasal Cannula 3.00 11/17/17 19:23 147 142/65 11/17/17 18:14 144 22 139/78 (98) 95 Nasal Cannula 2.00 11/17/17 15:51 131 18 137/66 (89) 95 Nasal Cannula 2.00 11/17/17 14:29 128 22 128/81 (97) 95 Nasal Cannula 2.00 11/17/17 13:17 117 18 153/72 (99) 96 Nasal Cannula 2.00 11/17/17 12:28 140 18 159/80 (106) Nasal Cannula 95 11/17/17 12:27 115 167/69 I/O 11/17/17 11/17/17 11/17/17 11/18/17 11/18/17 11/18/17 07:00 15:00 23:00 07:00 15:00 23:00 Intake Total 100 ml 950 ml 240 ml Output Total 400 ml Balance 100 ml 950 ml -160 ml Intake Oral 240 ml IV Total 100 ml 950 ml Output Urine Total 400 ml Physical Exam GENERAL: Well developed, well nourished. No acute distress. HEENT: Jugular venous pressure is normal. CHEST: Lungs wheeze to auscultation bilaterally. Unlabored respiratory effort. CARDIAC: irregular rate and rhythm without S3, S4, or murmur. ABDOMEN: Soft, nontender, no hepatosplenomegaly. Bowel sounds present. EXTREMITIES: No clubbing, cyanosis, or edema. Laboratory Laboratory Tests Test 11/17/17 17:28 11/17/17 23:02 11/18/17 05:25 Troponin I 0.07 NG/ML 0.05 NG/ML White Blood Count 8.7 TH/MM3 Red Blood Count 4.76 MIL/MM3 Hemoglobin 13.8 GM/DL Hematocrit 41.6 % Mean Corpuscular Volume 87.6 FL Mean Corpuscular Hemoglobin 29.1 PG Mean Corpuscular Hemoglobin Concent 33.2 % Red Cell Distribution Width 14.7 % Platelet Count 241 TH/MM3 Mean Platelet Volume 7.9 FL Blood Urea Nitrogen 34 MG/DL Creatinine 1.45 MG/DL Random Glucose 199 MG/DL Calcium Level 8.0 MG/DL Sodium Level 141 MEQ/L Potassium Level 4.1 MEQ/L Chloride Level 110 MEQ/L Carbon Dioxide Level 21.4 MEQ/L Anion Gap 10 MEQ/L Estimat Glomerular Filtration Rate 46 ML/MIN Imaging Last 72 hours Impressions Chest X-Ray 11/17/17 1149 Signed Impressions: Service Date/Time: Friday, November 17, 2017 12:16 - CONCLUSION: Mild bibasilar atelectasis and/or infiltrates. Vasu Perdomo MD Assessment and Plan Assessment and Plan 1. New onset atrial fibrillation. rate controlled - change to PO dilt and amio elevated CHADS-VASc score, needs anticoagulation -- Compliance may be of some concern: coumadin/RENETTA per primary team As he is a do not resuscitate, I would not pursue evaluation with stress testing. 2. Pneumonia. This will be managed by the primary team. 3. DNR Olga Lidia Mcneal MD Nov 18, 2017 12:21
[2017-11-18] MEDS: DILTIAZEM HCL 30 MG TAB PO SCH ×2 (12:53→17:10)
--- NOTE | 2017-11-18 14:06 | EKG ---
Date Performed: 11/17/2017 Time Performed: 12:03:40 PTAGE: 81 years EKG: ATRIAL FIBRILLATION WITH RAPID VENTRICULAR RESPONSE ABNORMAL RHYTHM ECG Compared to PREVIOUS TRACING , atrial fibrillation is new. PREVIOUS TRACIN03/17/2001 16.12 DOCTOR: Chauncey Berger Interpretating Date/Time 11/18/2017 14:05:59
[2017-11-18] MEDS: RESP: ALBUTEROL 2.5 MG/IPRATROPIUM 0.5 MG NEB (PRN) NEB ×2 (16:35→21:19)
[2017-11-18] MEDS: PRAVASTATIN SOD 80 MG TAB PO SCH (20:58)
[2017-11-18] MEDS: traZODone HCL 50 MG TAB PO SCH (20:58)
[2017-11-18] MEDS: APIXABAN 2.5 MG TABLET PO SCH (20:59)
[2017-11-19] VITALS (31 sets, daily range): BP systolic 119–143; BP diastolic 65–81; PULSE 70–105; RESP 16–18; TEMP 97.1–98.8; O2SAT 93–100
[2017-11-19] MEDS: DILTIAZEM HCL 30 MG TAB PO SCH ×2 (00:47→05:44)
[2017-11-19] MEDS ORDERED: AMIODARONE 200 MG TAB PO SCH (09:00)
[2017-11-19] MEDS: INSULIN ASPART SUPPLEMENTAL SCALE SQ SCH ×4 (09:29→21:42)
[2017-11-19] MEDS: PRIMIDONE 50 MG TAB PO SCH ×2 (09:30→20:38)
[2017-11-19] MEDS: SERTRALINE HCL 100 MG TAB PO SCH (09:30)
[2017-11-19] MEDS: cefTRIAXone INJ 1,000 MG in SODIUM CHLORIDE 0.9% INJ 100 ML IV SCH (09:30)
[2017-11-19] MEDS: busPIRone HCL 5 MG TAB PO SCH ×3 (09:30→18:00)
[2017-11-19] MEDS: APIXABAN 2.5 MG TABLET PO SCH ×2 (09:30→20:38)
[2017-11-19] MEDS: AZITHROMYCIN 250 MG TAB PO SCH (09:30)
[2017-11-19] MEDS: PROPRANOLOL HCL 20 MG TAB PO SCH ×2 (09:30→20:38)
--- NOTE | 2017-11-19 12:05 | PD.CARD.PN ---
Subjective Subjective Remarks c/o cough Objective Medications Current Medications Medications (Trade) Dose Ordered Sig/Flor Route Start Time Stop Time Status Last Admin (NS Flush) 2 ml UNSCH PRN IV FLUSH 11/17/17 12:00 11/19/17 09:31 (NS Flush) 2 ml UNSCH PRN IVF 11/17/17 12:00 (Narcan Inj) 0.4 mg UNSCH PRN IV PUSH 11/17/17 14:00 (Milk Of Magnesia Liq) 30 ml Q12H PRN PO 11/17/17 14:00 (Senokot) 17.2 mg Q12H PRN PO 11/17/17 14:00 (Dulcolax Supp) 10 mg DAILY PRN RECTAL 11/17/17 14:00 (Lactulose Liq) 30 ml DAILY PRN PO 11/17/17 14:00 Ceftriaxone Sodium 1000 mg/ Sodium Chloride 100 ml @ 200 mls/hr Q24H IV 11/18/17 09:00 11/19/17 09:30 (Zithromax) 500 mg DAILY PO 11/18/17 09:00 11/19/17 09:30 (Duoneb Neb) 1 ampule Q4HR NEB PRN NEB 11/17/17 17:00 11/18/17 21:19 (Buspar) 5 mg TID PO 11/18/17 09:00 11/19/17 09:30 (Mysoline) 50 mg BID PO 11/17/17 21:00 11/19/17 09:30 (Zoloft) 100 mg DAILY PO 11/18/17 09:00 11/19/17 09:30 (Desyrel) 50 mg HS PO 11/17/17 21:00 11/18/17 20:58 (Pravachol) 80 mg HS PO 11/17/17 21:00 11/18/17 20:58 (D50w (Vial) Inj) 50 ml UNSCH PRN IV PUSH 11/17/17 20:00 (Glucagon Inj) 1 mg UNSCH PRN OTHER 11/17/17 20:00 (NovoLOG SUPPLEMENTAL SCALE) 1 ACHS SLIDING SCALE SQ 11/17/17 21:00 11/19/17 09:29 (Inderal) 20 mg BID PO 11/17/17 21:00 11/19/17 09:30 (Catapres) 0.1 mg Q6H PRN PO 11/17/17 20:15 (Cardizem) 30 mg Q6HR PO 11/18/17 12:30 11/19/17 05:44 (Cordarone) 200 mg DAILY PO 11/19/17 09:00 11/19/17 09:30 (Eliquis) 2.5 mg BID PO 11/18/17 21:00 11/19/17 09:30 Vital Signs / I&O Vital Signs Date Time Temp Pulse Resp B/P (MAP) Pulse Ox O2 Delivery O2 Flow Rate FiO2 11/19/17 10:57 105 11/19/17 10:57 105 11/19/17 10:11 98.8 11/19/17 10:00 102 11/19/17 09:00 92 11/19/17 08:00 88 11/19/17 07:42 100 16 119/75 (90) 94 11/19/17 07:30 96 Nasal Cannula 2.00 11/19/17 07:12 92 11/19/17 06:01 94 11/19/17 05:22 74 11/19/17 04:01 70 11/19/17 03:53 100 35 11/19/17 03:38 97.1 74 132/67 (88) 100 11/19/17 03:00 81 11/19/17 02:00 70 11/19/17 01:00 99 35 11/19/17 01:00 80 11/19/17 00:00 94 11/18/17 23:20 98 35 11/18/17 23:00 91 11/18/17 23:00 98.3 112 152/95 (114) 97 11/18/17 22:00 94 11/18/17 21:20 96 Nasal Cannula 2.00 11/18/17 21:00 84 11/18/17 20:00 98.2 99 108/51 (70) 93 11/18/17 20:00 84 11/18/17 19:00 88 11/18/17 17:00 96 11/18/17 16:28 98.0 82 18 148/72 (97) 97 11/18/17 16:00 78 11/18/17 15:00 74 11/18/17 14:00 84 11/18/17 13:00 68 I/O 11/18/17 11/18/17 11/18/17 11/19/17 11/19/17 11/19/17 07:00 15:00 23:00 07:00 15:00 23:00 Intake Total 240 ml 1000 ml 240 ml Output Total 400 ml 300 ml Balance -160 ml 1000 ml -60 ml Intake Oral 240 ml 1000 ml 240 ml Output Urine Total 400 ml 300 ml # Voids 3 # Bowel Movements 3 Physical Exam Morbidly obese Sitting/ alert Chest B/L rhoncho CV S1S2 irr irr - rate is now fast Abd soft Ext no edema No info on LV function - echo ordered Laboratory Laboratory Tests Test 11/17/17 11:55 11/17/17 23:02 11/18/17 05:25 Neutrophils (%) (Auto) 75.9 % Lymphocytes (%) (Auto) 9.5 % Monocytes (%) (Auto) 11.6 % Eosinophils (%) (Auto) 2.5 % Basophils (%) (Auto) 0.5 % Neutrophils # (Auto) 9.9 TH/MM3 Lymphocytes # (Auto) 1.2 TH/MM3 Monocytes # (Auto) 1.5 TH/MM3 Eosinophils # (Auto) 0.3 TH/MM3 Basophils # (Auto) 0.1 TH/MM3 CBC Comment DIFF FINAL Differential Comment Prothrombin Time 11.4 SEC Prothromb Time International Ratio 1.1 RATIO Activated Partial Thromboplast Time 32.0 SEC Blood Urea Nitrogen 30 MG/DL 34 MG/DL Creatinine 1.65 MG/DL 1.45 MG/DL Random Glucose 243 MG/DL 199 MG/DL Total Protein 8.1 GM/DL Albumin 3.4 GM/DL Calcium Level 8.8 MG/DL 8.0 MG/DL Magnesium Level 1.9 MG/DL Alkaline Phosphatase 61 U/L Aspartate Amino Transf (AST/SGOT) 48 U/L Alanine Aminotransferase (ALT/SGPT) 45 U/L Total Bilirubin 0.4 MG/DL Sodium Level 141 MEQ/L 141 MEQ/L Potassium Level 4.6 MEQ/L 4.1 MEQ/L Chloride Level 108 MEQ/L 110 MEQ/L Carbon Dioxide Level 22.5 MEQ/L 21.4 MEQ/L Total Creatine Kinase 105 U/L Creatine Kinase MB 2.5 NG/ML B-Type Natriuretic Peptide 151 PG/ML Troponin I 0.05 NG/ML White Blood Count 8.7 TH/MM3 Red Blood Count 4.76 MIL/MM3 Hemoglobin 13.8 GM/DL Hematocrit 41.6 % Mean Corpuscular Volume 87.6 FL Mean Corpuscular Hemoglobin 29.1 PG Mean Corpuscular Hemoglobin Concent 33.2 % Red Cell Distribution Width 14.7 % Platelet Count 241 TH/MM3 Mean Platelet Volume 7.9 FL Anion Gap 10 MEQ/L Estimat Glomerular Filtration Rate 46 ML/MIN Assessment and Plan Problem List: (1) Atrial fibrillation with RVR ICD Codes: I48.91 - Unspecified atrial fibrillation Status: Acute Plan: Rate not well controlled. Increase Diltiazem to 240mg and hold amio (2) Pneumonia ICD Codes: J18.9 - Pneumonia, unspecified organism Status: Acute Problem Qualifiers (1) Pneumonia: Chauncey Berger MD Nov 19, 2017 12:05
[2017-11-19] MEDS: DILTIAZEM-CD 240 MG CAP ER PO SCH (13:45)
--- NOTE | 2017-11-19 14:30 | HHI.PR ---
Subjective Remarks Patient reports he is feeling better today. Still has a cough. Objective Vitals Vital Signs Date Time Temp Pulse Resp B/P (MAP) Pulse Ox O2 Delivery O2 Flow Rate FiO2 11/19/17 13:00 93 11/19/17 12:57 97.9 93 18 143/81 (101) 95 11/19/17 10:57 105 11/19/17 10:57 105 11/19/17 10:11 98.8 11/19/17 10:00 102 11/19/17 09:00 92 11/19/17 08:00 88 11/19/17 07:42 100 16 119/75 (90) 94 11/19/17 07:30 96 Nasal Cannula 2.00 11/19/17 07:12 92 11/19/17 06:01 94 11/19/17 05:22 74 11/19/17 04:01 70 11/19/17 03:53 100 35 11/19/17 03:38 97.1 74 132/67 (88) 100 11/19/17 03:00 81 11/19/17 02:00 70 11/19/17 01:00 99 35 11/19/17 01:00 80 11/19/17 00:00 94 11/18/17 23:20 98 35 11/18/17 23:00 91 11/18/17 23:00 98.3 112 152/95 (114) 97 11/18/17 22:00 94 11/18/17 21:20 96 Nasal Cannula 2.00 11/18/17 21:00 84 11/18/17 20:00 98.2 99 108/51 (70) 93 11/18/17 20:00 84 11/18/17 19:00 88 11/18/17 17:00 96 11/18/17 16:28 98.0 82 18 148/72 (97) 97 11/18/17 16:00 78 11/18/17 15:00 74 I/O 11/18/17 11/18/17 11/18/17 11/19/17 11/19/17 11/19/17 07:00 15:00 23:00 07:00 15:00 23:00 Intake Total 240 ml 1000 ml 240 ml Output Total 400 ml 300 ml Balance -160 ml 1000 ml -60 ml Intake Oral 240 ml 1000 ml 240 ml Output Urine Total 400 ml 300 ml # Voids 3 # Bowel Movements 3 Result Diagram: 11/18/1725 11/18/1725 Objective Remarks GENERAL: Elderly male in mild respiratory distress CARDIOVASCULAR: Rate around 80s and irregular rhythm without murmurs, gallops, or rubs. RESPIRATORY: Diffuse rhonchi and rales. Spasmodic cough. GASTROINTESTINAL: Abdomen soft, non-tender, nondistended. No hepato-splenomegaly , or palpable masses. No guarding. MUSCULOSKELETAL: Extremities without clubbing, cyanosis, or edema. No joint tenderness, effusion, or edema noted. No calf tenderness. Negative Homans sign bilaterally. NEUROLOGICAL: Awake and alert. Cranial nerves II through XII intact. Motor and sensory grossly within normal limits. Five out of 5 muscle strength in all muscle groups. Normal speech. A/P Problem List: (1) Atrial fibrillation with RVR ICD Code: I48.91 - Unspecified atrial fibrillation Status: Acute Plan: Afiv with RVR in the setting of pneumonia. s/p lV Cardizem and amiodarone drip. CHADS-VASC score >3 Start Eliquis low dose given renal insufficiency and advanced age. Appreciate cardiology input, rate still uncontrolled, Cardizem increased to 240 mg p.o. daily. (2) Hypertension ICD Code: I10 - Essential (primary) hypertension Plan: Hold JODI inhibitors for now given acute renal failure. BP currently acceptable. Clonidine as needed. (3) Diabetes ICD Code: E11.9 - Type 2 diabetes mellitus without complications Plan: Hold home medications. Sliding scale insulin with Accu-Cheks. (4) Pneumonia ICD Code: J18.9 - Pneumonia, unspecified organism Status: Acute Plan: Chest x-ray personally reviewed. Bibasilar infiltrates noted. Continue Rocephin and azithromycin. (5) Acute renal failure ICD Code: N17.9 - Acute kidney failure, unspecified Plan: Probably secondary to prerenal azotemia/hypoperfusion IV hydration. Improving. Follow BMP in a.m. Problem Qualifiers (1) Diabetes: (2) Pneumonia: Shaun Francois MD Nov 19, 2017 14:30
--- NOTE | 2017-11-19 15:42 | ECHRPT ---
Indication: ATRIAL FIB/FLUTTER CONCLUSIONS The left ventricular systolic function is low normal with an estimated ejection fraction in the rang e of 50- 55%. Normal left ventricular size. Mild concentric left ventricular hypertrophy. The left atrial size is mildly dilated. The right atrial size is mildly dilated. Trace mitral valve regurgitation. Aortic valve sclerosis is present. There is trace tricuspid valve regurgitation. The estimated pulmonary arterial pressure is 36.3 mmHg. BP: 119 / 75 HR: 100 Rhythm: MEASUREMENTS (Male / Female) Normal Values Technical Quality: 2D ECHO LVOT Diameter 1.8 cm Aortic Root Diameter 2.5 cm DOPPLER AV Peak Velocity 118.4 cm/s AV Peak Gradient 5.6 mmHg AV Mean Gradient 3.0 mmHg AV Velocity Time Integral 22.5 cm LVOT Peak Velocity 52.3 cm/s LVOT Peak Gradient 1.1 mmHg LVOT Velocity Time Integral 9.8 cm AV Area Cont Eq vti 1.1 cm AV Area Cont Eq pk 1.1 cm Mitral E Point Velocity 98.7 cm/s Mitral A Point Velocity 105.0 cm/s Mitral E to A Ratio 0.9 LV E' Lateral Velocity 5.9 cm/s Mitral E to LV E' Lateral Ratio 16.6 LV E' Septal Velocity 7.6 cm/s Mitral E to LV E' Septal Ratio 12.9 TR Peak Velocity 256.5 cm/s TR Peak Gradient 26.3 mmHg Right Atrial Pressure 10.0 mmHg Pulmonary Artery Systolic Pressu 36.3 mmHg Right Ventricular Systolic Press 36.3 mmHg PV Peak Velocity 57.1 cm/s PV Peak Gradient 1.3 mmHg FINDINGS LEFT VENTRICLE The left ventricular systolic function is low normal with an estimated ejection fraction in the rang e of 50- 55%. Normal left ventricular size. Mild concentric left ventricular hypertrophy. RIGHT VENTRICLE The right ventricle was not well visualized. LEFT ATRIUM The left atrial size is mildly dilated. RIGHT ATRIUM The right atrial size is mildly dilated. ATRIAL SEPTUM The interatrial septum not well visualized. AORTA The aortic root and proximal ascending aorta are not well visualized. MITRAL VALVE Trace mitral valve regurgitation. AORTIC VALVE Aortic valve sclerosis is present. TRICUSPID VALVE There is trace tricuspid valve regurgitation. The estimated pulmonary arterial pressure is 36.3 mmHg. PULMONARY VALVE The pulmonary valve is not well visualized. VESSELS The inferior vena cava is normal in size. PERICARDIUM No pericardial effusion. Obdulio Betancourt MD, FACC (Electronically Signed) Final Date:19 November 2017 15:41
[2017-11-19] MEDS: PRAVASTATIN SOD 80 MG TAB PO SCH (20:38)
[2017-11-19] MEDS: traZODone HCL 50 MG TAB PO SCH (20:38)
[2017-11-20] VITALS (22 sets, daily range): BP systolic 107–141; BP diastolic 63–85; PULSE 84–137; RESP 16–18; TEMP 97.5–98.7; O2SAT 92–100
[2017-11-20] MEDS: INSULIN ASPART SUPPLEMENTAL SCALE SQ SCH ×4 (08:00→20:30)
[2017-11-20 08:19] LABS: HEMATOCRIT 41.2 % (39.0-51.0); HEMOGLOBIN 13.9 GM/DL (13.0-17.0); MEAN CELL VOLUME 87.1 FL (80.0-100.0); MEAN CORPUSCULAR HEMOGLOBIN 29.4 PG (27.0-34.0); MEAN CORPUSCULAR HGB CONC 33.7 % (32.0-36.0); PLATELET COUNT 238 TH/MM3 (150-450); RED BLOOD COUNT 4.73 MIL/MM3 (4.50-5.90); RED CELL DISTRIBUTION WIDTH 14.5 % (11.6-17.2); WHITE BLOOD COUNT 10.8 TH/MM3 (4.0-11.0)
[2017-11-20 08:55] LABS: ALBUMIN 2.8 GM/DL (3.4-5.0); ALKALINE PHOSPHATASE 55 U/L (45-117); ALT (GPT) 68 U/L (12-78); AST (GOT) 66 U/L (15-37); BICARBONATE 23.2 MEQ/L (21.0-32.0); BLOOD UREA NITROGEN 23 MG/DL (7-18); CALCIUM 8.1 MG/DL (8.5-10.1); CHLORIDE 113 MEQ/L (98-107); CREATININE 1.08 MG/DL (0.60-1.30); GLOMERULAR FILTRATION RATE 65 ML/MIN (>89); GLUCOSE,RANDOM 132 MG/DL (74-106); SODIUM (NA) 144 MEQ/L (136-145); TOTAL BILIRUBIN ADULT 0.3 MG/DL (0.2-1.0); TOTAL PROTEIN 6.8 GM/DL (6.4-8.2)
[2017-11-20] MEDS: PRIMIDONE 50 MG TAB PO SCH ×2 (09:07→20:29)
[2017-11-20] MEDS: busPIRone HCL 5 MG TAB PO SCH ×3 (09:07→18:00)
[2017-11-20] MEDS: AZITHROMYCIN 250 MG TAB PO SCH (09:07)
[2017-11-20] MEDS: SERTRALINE HCL 100 MG TAB PO SCH (09:07)
[2017-11-20] MEDS: PROPRANOLOL HCL 20 MG TAB PO SCH ×2 (09:07→20:29)
[2017-11-20] MEDS: DILTIAZEM-CD 240 MG CAP ER PO SCH (09:07)
[2017-11-20] MEDS: APIXABAN 2.5 MG TABLET PO SCH ×2 (09:07→20:30)
[2017-11-20] MEDS: cefTRIAXone INJ 1,000 MG in SODIUM CHLORIDE 0.9% INJ 100 ML IV SCH (09:09)
--- NOTE | 2017-11-20 12:28 | HHI.PR ---
Subjective Remarks Patient reports he is feeling slightly better. Still having a cough. No fevers. Heart rate better controlled. Objective Vitals Vital Signs Date Time Temp Pulse Resp B/P (MAP) Pulse Ox O2 Delivery O2 Flow Rate FiO2 11/20/17 11:21 94 21 11/20/17 11:10 98.1 102 16 135/72 (93) 100 11/20/17 08:00 97.7 116 18 135/71 (92) 100 11/20/17 05:00 98 11/20/17 04:00 98.4 98 18 141/72 (95) 92 11/20/17 04:00 98 11/20/17 01:00 94 11/20/17 00:00 98.7 97 18 132/75 (94) 98 11/19/17 23:00 103 11/19/17 22:00 102 11/19/17 22:00 102 11/19/17 21:30 94 21 11/19/17 21:29 98 35 11/19/17 20:00 98.7 105 18 125/78 (94) 93 11/19/17 20:00 95 11/19/17 18:00 98 11/19/17 17:00 96 11/19/17 16:00 98 11/19/17 15:25 94 11/19/17 15:24 98.0 94 18 131/65 (87) 94 11/19/17 15:04 99 11/19/17 14:52 105 11/19/17 13:00 93 11/19/17 12:57 97.9 93 18 143/81 (101) 95 I/O 11/19/17 11/19/17 11/19/17 11/20/17 11/20/17 11/20/17 07:00 15:00 23:00 07:00 15:00 23:00 Intake Total 240 ml 750 ml 360 ml Output Total 300 ml 750 ml Balance -60 ml 0 ml 360 ml Intake Oral 240 ml 750 ml 360 ml Output Urine Total 300 ml 750 ml # Voids 3 Result Diagram: 11/20/17 0800 11/20/17 0800 Objective Remarks GENERAL: Elderly male in mild respiratory distress CARDIOVASCULAR: Rate around 80s and irregular rhythm without murmurs, gallops, or rubs. RESPIRATORY: Bibasilar rales, better air movement. Mostly clear to auscultation in the upper lung wilks. GASTROINTESTINAL: Abdomen soft, non-tender, nondistended. No hepato-splenomegaly , or palpable masses. No guarding. MUSCULOSKELETAL: Extremities without clubbing, cyanosis, or edema. No joint tenderness, effusion, or edema noted. No calf tenderness. Negative Homans sign bilaterally. NEUROLOGICAL: Awake and alert. Cranial nerves II through XII intact. Motor and sensory grossly within normal limits. Five out of 5 muscle strength in all muscle groups. Normal speech. A/P Problem List: (1) Atrial fibrillation with RVR ICD Code: I48.91 - Unspecified atrial fibrillation Status: Acute Plan: Afiv with RVR in the setting of pneumonia. s/p lV Cardizem and amiodarone drip. CHADS-VASC score >3 Eliquis low dose given renal insufficiency and advanced age. Appreciate cardiology input, better controlled, continue Cardizem 240 mg p.o. daily. (2) Hypertension ICD Code: I10 - Essential (primary) hypertension Plan: Hold JODI inhibitors for now given acute renal failure. BP currently acceptable. Clonidine as needed. (3) Diabetes ICD Code: E11.9 - Type 2 diabetes mellitus without complications Plan: Hold home medications. Sliding scale insulin with Accu-Cheks. (4) Pneumonia ICD Code: J18.9 - Pneumonia, unspecified organism Status: Acute Plan: Chest x-ray personally reviewed. Bibasilar infiltrates noted. Continue Rocephin and azithromycin. (5) Acute renal failure ICD Code: N17.9 - Acute kidney failure, unspecified Plan: Probably secondary to prerenal azotemia/hypoperfusion Resolving after IV hydration. IV fluids discontinued. Discharge Planning If remains stable, will consider discharge tomorrow. May need home health. He is frail and lives by himself. Problem Qualifiers (1) Diabetes: (2) Pneumonia: Shaun Francois MD Nov 20, 2017 12:28
--- NOTE | 2017-11-20 14:19 | PD.CARD.PN ---
Subjective Subjective Remarks c/o cough Objective Medications Current Medications Medications (Trade) Dose Ordered Sig/Flor Route Start Time Stop Time Status Last Admin (NS Flush) 2 ml UNSCH PRN IV FLUSH 11/17/17 12:00 11/19/17 09:31 (NS Flush) 2 ml UNSCH PRN IVF 11/17/17 12:00 (Narcan Inj) 0.4 mg UNSCH PRN IV PUSH 11/17/17 14:00 (Milk Of Magnesia Liq) 30 ml Q12H PRN PO 11/17/17 14:00 (Senokot) 17.2 mg Q12H PRN PO 11/17/17 14:00 (Dulcolax Supp) 10 mg DAILY PRN RECTAL 11/17/17 14:00 (Lactulose Liq) 30 ml DAILY PRN PO 11/17/17 14:00 Ceftriaxone Sodium 1000 mg/ Sodium Chloride 100 ml @ 200 mls/hr Q24H IV 11/18/17 09:00 11/20/17 09:09 (Zithromax) 500 mg DAILY PO 11/18/17 09:00 11/20/17 09:07 (Duoneb Neb) 1 ampule Q4HR NEB PRN NEB 11/17/17 17:00 11/18/17 21:19 (Buspar) 5 mg TID PO 11/18/17 09:00 11/20/17 13:29 (Mysoline) 50 mg BID PO 11/17/17 21:00 11/20/17 09:07 (Zoloft) 100 mg DAILY PO 11/18/17 09:00 11/20/17 09:07 (Desyrel) 50 mg HS PO 11/17/17 21:00 11/19/17 20:38 (Pravachol) 80 mg HS PO 11/17/17 21:00 11/19/17 20:38 (D50w (Vial) Inj) 50 ml UNSCH PRN IV PUSH 11/17/17 20:00 (Glucagon Inj) 1 mg UNSCH PRN OTHER 11/17/17 20:00 (NovoLOG SUPPLEMENTAL SCALE) 1 ACHS SLIDING SCALE SQ 11/17/17 21:00 11/20/17 12:00 (Inderal) 20 mg BID PO 11/17/17 21:00 11/20/17 09:07 (Catapres) 0.1 mg Q6H PRN PO 11/17/17 20:15 (Eliquis) 2.5 mg BID PO 11/18/17 21:00 11/20/17 09:07 (Cardizem Cd) 240 mg DAILY PO 11/19/17 12:30 11/20/17 09:07 Vital Signs / I&O Vital Signs Date Time Temp Pulse Resp B/P (MAP) Pulse Ox O2 Delivery O2 Flow Rate FiO2 11/20/17 11:21 94 21 11/20/17 11:10 98.1 102 16 135/72 (93) 100 11/20/17 08:00 97.7 116 18 135/71 (92) 100 11/20/17 05:00 98 11/20/17 04:00 98.4 98 18 141/72 (95) 92 11/20/17 04:00 98 11/20/17 01:00 94 11/20/17 00:00 98.7 97 18 132/75 (94) 98 11/19/17 23:00 103 11/19/17 22:00 102 11/19/17 22:00 102 11/19/17 21:30 94 21 11/19/17 21:29 98 35 11/19/17 20:00 98.7 105 18 125/78 (94) 93 11/19/17 20:00 95 11/19/17 18:00 98 11/19/17 17:00 96 11/19/17 16:00 98 11/19/17 15:25 94 11/19/17 15:24 98.0 94 18 131/65 (87) 94 11/19/17 15:04 99 11/19/17 14:52 105 I/O 11/19/17 11/19/17 11/19/17 11/20/17 11/20/17 11/20/17 07:00 15:00 23:00 07:00 15:00 23:00 Intake Total 240 ml 750 ml 360 ml Output Total 300 ml 750 ml Balance -60 ml 0 ml 360 ml Intake Oral 240 ml 750 ml 360 ml Output Urine Total 300 ml 750 ml # Voids 3 Physical Exam Morbidly obese Sitting/ alert Chest B/L rhoncho CV S1S2 irr irr - HR 90's/ 100's Abd soft Ext no edema Laboratory Laboratory Tests Test 11/20/17 08:00 White Blood Count 10.8 TH/MM3 Red Blood Count 4.73 MIL/MM3 Hemoglobin 13.9 GM/DL Hematocrit 41.2 % Mean Corpuscular Volume 87.1 FL Mean Corpuscular Hemoglobin 29.4 PG Mean Corpuscular Hemoglobin Concent 33.7 % Red Cell Distribution Width 14.5 % Platelet Count 238 TH/MM3 Mean Platelet Volume 8.0 FL Blood Urea Nitrogen 23 MG/DL Creatinine 1.08 MG/DL Random Glucose 132 MG/DL Total Protein 6.8 GM/DL Albumin 2.8 GM/DL Calcium Level 8.1 MG/DL Alkaline Phosphatase 55 U/L Aspartate Amino Transf (AST/SGOT) 66 U/L Alanine Aminotransferase (ALT/SGPT) 68 U/L Total Bilirubin 0.3 MG/DL Sodium Level 144 MEQ/L Potassium Level 3.7 MEQ/L Chloride Level 113 MEQ/L Carbon Dioxide Level 23.2 MEQ/L Anion Gap 8 MEQ/L Estimat Glomerular Filtration Rate 65 ML/MIN Assessment and Plan Problem List: (1) Atrial fibrillation with RVR ICD Codes: I48.91 - Unspecified atrial fibrillation Status: Acute Plan: rate better controlled (2) Pneumonia ICD Codes: J18.9 - Pneumonia, unspecified organism Status: Acute Problem Qualifiers (1) Pneumonia: Chauncey Berger MD Nov 20, 2017 14:19
[2017-11-20] MEDS: traZODone HCL 50 MG TAB PO SCH (20:29)
[2017-11-20] MEDS: PRAVASTATIN SOD 80 MG TAB PO SCH (20:29)
[2017-11-21] VITALS (16 sets, daily range): BP systolic 125–144; BP diastolic 67–74; PULSE 84–124; RESP 22; TEMP 97.6–98.3; O2SAT 92–96
[2017-11-21] MEDS: INSULIN ASPART SUPPLEMENTAL SCALE SQ SCH ×2 (08:00→12:56)
[2017-11-21] MEDS: cefTRIAXone INJ 1,000 MG in SODIUM CHLORIDE 0.9% INJ 100 ML IV SCH (09:27)
[2017-11-21] MEDS: SERTRALINE HCL 100 MG TAB PO SCH (09:29)
[2017-11-21] MEDS: APIXABAN 2.5 MG TABLET PO SCH (09:29)
[2017-11-21] MEDS: DILTIAZEM-CD 240 MG CAP ER PO SCH (09:29)
[2017-11-21] MEDS: PROPRANOLOL HCL 20 MG TAB PO SCH (09:29)
[2017-11-21] MEDS: AZITHROMYCIN 250 MG TAB PO SCH (09:29)
[2017-11-21] MEDS: PRIMIDONE 50 MG TAB PO SCH (09:29)
[2017-11-21] MEDS: busPIRone HCL 5 MG TAB PO SCH ×2 (09:29→12:56)
[2017-11-21] MEDS ORDERED: METOPROLOL TARTRATE 25 MG TAB PO SCH (10:00)
[2017-11-21] MEDS ORDERED: POTASSIUM CHLORIDE 20 MEQ CONTROLLED RELEASE TAB PO ONE (10:00)
--- NOTE | 2017-11-21 10:03 | PD.CARD.PN ---
Subjective Subjective Remarks c/o persistent cough, not improving Objective Medications Current Medications Medications (Trade) Dose Ordered Sig/Flor Route Start Time Stop Time Status Last Admin (NS Flush) 2 ml UNSCH PRN IV FLUSH 11/17/17 12:00 11/19/17 09:31 (NS Flush) 2 ml UNSCH PRN IVF 11/17/17 12:00 (Narcan Inj) 0.4 mg UNSCH PRN IV PUSH 11/17/17 14:00 (Milk Of Magnesia Liq) 30 ml Q12H PRN PO 11/17/17 14:00 (Senokot) 17.2 mg Q12H PRN PO 11/17/17 14:00 (Dulcolax Supp) 10 mg DAILY PRN RECTAL 11/17/17 14:00 (Lactulose Liq) 30 ml DAILY PRN PO 11/17/17 14:00 Ceftriaxone Sodium 1000 mg/ Sodium Chloride 100 ml @ 200 mls/hr Q24H IV 11/18/17 09:00 11/21/17 09:27 (Zithromax) 500 mg DAILY PO 11/18/17 09:00 11/21/17 09:29 (Duoneb Neb) 1 ampule Q4HR NEB PRN NEB 11/17/17 17:00 11/18/17 21:19 (Buspar) 5 mg TID PO 11/18/17 09:00 11/21/17 09:29 (Mysoline) 50 mg BID PO 11/17/17 21:00 11/21/17 09:29 (Zoloft) 100 mg DAILY PO 11/18/17 09:00 11/21/17 09:29 (Desyrel) 50 mg HS PO 11/17/17 21:00 11/20/17 20:29 (Pravachol) 80 mg HS PO 11/17/17 21:00 11/20/17 20:29 (D50w (Vial) Inj) 50 ml UNSCH PRN IV PUSH 11/17/17 20:00 (Glucagon Inj) 1 mg UNSCH PRN OTHER 11/17/17 20:00 (NovoLOG SUPPLEMENTAL SCALE) 1 ACHS SLIDING SCALE SQ 11/17/17 21:00 11/20/17 20:30 (Inderal) 20 mg BID PO 11/17/17 21:00 11/21/17 09:29 (Catapres) 0.1 mg Q6H PRN PO 11/17/17 20:15 (Eliquis) 2.5 mg BID PO 11/18/17 21:00 11/21/17 09:29 (Cardizem Cd) 240 mg DAILY PO 11/19/17 12:30 11/21/17 09:29 Vital Signs / I&O Vital Signs Date Time Temp Pulse Resp B/P (MAP) Pulse Ox O2 Delivery O2 Flow Rate FiO2 11/21/17 08:58 92 21 11/21/17 06:07 110 11/21/17 05:00 102 11/21/17 04:00 108 11/21/17 03:19 109 11/21/17 03:00 98.3 110 140/67 (91) 96 11/21/17 02:00 104 11/21/17 01:00 102 11/21/17 00:00 97.9 88 125/67 (86) 95 11/21/17 00:00 84 11/20/17 23:00 84 11/20/17 22:00 88 11/20/17 21:39 96 21 11/20/17 21:00 124 11/20/17 20:00 108 11/20/17 20:00 97.5 137 107/85 (92) 95 11/20/17 19:00 114 11/20/17 18:00 112 11/20/17 17:00 118 11/20/17 16:29 98.1 124 16 112/63 (79) 96 11/20/17 16:00 114 11/20/17 15:00 100 11/20/17 11:21 94 21 11/20/17 11:10 98.1 102 16 135/72 (93) 100 11/20/17 11:00 107 I/O 11/20/17 11/20/17 11/20/17 11/21/17 11/21/17 11/21/17 07:00 15:00 23:00 07:00 15:00 23:00 Intake Total 360 ml 1200 ml 480 ml Output Total 600 ml Balance 360 ml 600 ml 480 ml Intake Oral 360 ml 1200 ml 480 ml Output Urine Total 600 ml # Voids 3 3 Physical Exam Morbidly obese Sitting/ alert Chest B/L rhoncho CV S1S2 irr irr - HR has gone up to 120 Abd soft Ext no edema Assessment and Plan Problem List: (1) Atrial fibrillation with RVR ICD Codes: I48.91 - Unspecified atrial fibrillation Status: Acute (2) Pneumonia ICD Codes: J18.9 - Pneumonia, unspecified organism Status: Acute (3) Cough ICD Codes: R05 - Cough Assessment and Plan Change propanolol to metoprolol 25mg tid. Check CXR. If no CHF ? steroids for airway stabilization. Problem Qualifiers (1) Pneumonia: Chauncey Berger MD Nov 21, 2017 10:03
--- NOTE | 2017-11-21 10:44 | RADRPT ---
EXAM DATE/TIME: 11/21/2017 10:11 [facility] COMPARISON: CHEST SINGLE AP, November 17, 2017, 12:16. INDICATIONS : Shortness of breath and cough. MEDICAL HISTORY : None. SURGICAL HISTORY : None. ENCOUNTER: Subsequent ACUITY: 1 month PAIN SCORE: 0/10 LOCATION: Bilateral chest FINDINGS: A single view of the chest demonstrates the lungs to be symmetrically aerated without evidence of mas s, infiltrate or effusion. There is mild scarring and/or atelectasis at the lung bases. The cardiomed iastinal contours are unremarkable. Osseous structures are intact. CONCLUSION: No acute disease. There is no evidence of pneumonia. Gabe Giordano MD on November 21, 2017 at 10:42 Board Certified Radiologist. This report was verified electronically.
[2017-11-21] MEDS ORDERED: BENZ100 PO (11:10)
[2017-11-21] MEDS ORDERED: PRED10PA PO (11:10)
[2017-11-21] MEDS ORDERED: APIX2.5T PO (11:10)
[2017-11-21] MEDS ORDERED: DILT240C44 PO (11:10)
[2017-11-21] MEDS ORDERED: METO25TA3 PO (11:10)
[2017-11-21] MEDS ORDERED: DOXY100C PO (11:11)
--- NOTE | 2017-11-21 11:13 | HHI.FF ---
Face to Face Verification Diagnosis: (1) Atrial fibrillation with RVR (2) Pneumonia (3) Cough (4) Hypertension (5) Diabetes (6) Acute renal failure Home Health Nursing Order: Medical education Signs/symptoms of disease process Diabetic education Medication education-adverse effect Nursing assessment with vital signs I have seen patient Elmer Alexander on 11/21/17. My clinical findings support the need for the requested home health care services because: Deconditioned w/ increased weakness Med compliance is questionable Need for psychosocial assistance I certify that my clinical findings support that this patient is homebound because: Need for psychosocial assistance Poor cardiac reserve Shaun Francois MD Nov 21, 2017 11:13
--- NOTE | 2017-11-21 11:14 | HHI.DS ---
Discharge Summary Admission Date Nov 17, 2017 at 14:00 Discharge Date: Nov 21, 2017 Admitting Diagnosis Sepsis/pneumonia/A. fib with RVR (1) Atrial fibrillation with RVR ICD Code: I48.91 - Unspecified atrial fibrillation Status: Acute (2) Hypertension ICD Code: I10 - Essential (primary) hypertension (3) Diabetes ICD Code: E11.9 - Type 2 diabetes mellitus without complications (4) Pneumonia ICD Code: J18.9 - Pneumonia, unspecified organism Status: Acute (5) Acute renal failure ICD Code: N17.9 - Acute kidney failure, unspecified Procedures None Brief History - From Admission 81-year-old male with a medical history significant for atrial fibrillation, diabetes, hypertension who presented to the emergency room with complaint of shortness of breath. Patient reports starting about 6 days ago, he started to have cold symptoms including cough, fever and chills. He reports that over the past few days he continued to get worse with increasing shortness of breath and spasmodic cough. He was seen by his PCP and was found to have a heart rate of around 140s and he was referred to the emergency room. EMS found the patient to be in A. fib with RVR. He was given 20 mg of IV Cardizem. On my evaluation , the patient is still in A. fib with RVR on 15 mcg of Cardizem. He reports shortness of breath but denies chest pressure. He is a poor historian and does not know the medications he is taking. CBC/BMP: 11/20/17 0800 11/20/17 0800 Significant Findings Laboratory Tests Test 11/20/17 08:00 Blood Urea Nitrogen 23 MG/DL (7-18) Random Glucose 132 MG/DL (74-106) Albumin 2.8 GM/DL (3.4-5.0) Calcium Level 8.1 MG/DL (8.5-10.1) Aspartate Amino Transf (AST/SGOT) 66 U/L (15-37) Chloride Level 113 MEQ/L (98-107) Estimat Glomerular Filtration Rate 65 ML/MIN (>89) PE at Discharge GENERAL: Elderly male in mild respiratory distress CARDIOVASCULAR: Rate around 80s and irregular rhythm without murmurs, gallops, or rubs. RESPIRATORY: Bibasilar rales, better air movement. Mostly clear to auscultation in the upper lung wilks. GASTROINTESTINAL: Abdomen soft, non-tender, nondistended. No hepato-splenomegaly , or palpable masses. No guarding. MUSCULOSKELETAL: Extremities without clubbing, cyanosis, or edema. No joint tenderness, effusion, or edema noted. No calf tenderness. Negative Homans sign bilaterally. NEUROLOGICAL: Awake and alert. Cranial nerves II through XII intact. Motor and sensory grossly within normal limits. Five out of 5 muscle strength in all muscle groups. Normal speech. Pt update on day of discharge Patient reports he is feeling better. He still has a cough but is breathing more comfortably. Hospital Course 81-year-old male admitted and treated for the following: (1) Atrial fibrillation with RVR ICD Code: I48.91 - Unspecified atrial fibrillation Status: Acute Plan: Afiv with RVR in the setting of pneumonia. s/p lV Cardizem and amiodarone drip. CHADS-VASC score >3 Eliquis low dose given renal insufficiency and advanced age. Appreciate cardiology input, better controlled, continue Cardizem 240 mg p.o. daily. Patient also started on metoprolol. He is discharged on the same. He is advised to follow-up outpatient with cardiology. (2) Hypertension ICD Code: I10 - Essential (primary) hypertension Plan: Patient to continue on Cardizem and metoprolol. JODI inhibitor discontinued on discharge. Blood pressure acceptable. He is to follow up outpatient with PCP. JODI inhibitor may be reintroduced later. (3) Diabetes ICD Code: E11.9 - Type 2 diabetes mellitus without complications Plan: Resume home medications on discharge. (4) Pneumonia ICD Code: J18.9 - Pneumonia, unspecified organism Status: Acute Plan: Chest x-ray personally reviewed. Bibasilar infiltrates noted. Patient will continue treatment with doxycycline. He was initially treated with Rocephin and azithromycin. (5) Acute renal failure ICD Code: N17.9 - Acute kidney failure, unspecified Plan: Probably secondary to prerenal azotemia/hypoperfusion Resolved after IV hydration. IV fluids discontinued. Debility: -Patient is frail. He requires a rolling walker. Home health ordered. Pt Condition on Discharge: Good Discharge Disposition: Disch w/ Home Health Serv Discharge Time: > 30 minutes Discharge Instructions DIET: Follow Instructions for: Heart Healthy Diet Activities you can perform: Regular-No Restrictions Follow up Referrals: PCP Follow-up - 3-5 Days New Medications: Doxycycline Hyclate (Doxycycline Hyclate) 100 Mg Cap 100 MG PO BID for Infection, #20 CAP 0 Refills Walker with Front Wheels (Walker with Front Wheels) 1 Mis Mis EA .XX DIRECTED, #1 0 Refills Apixaban (Eliquis) 2.5 Mg Tab 2.5 MG PO BID, #60 TAB Diltiazem CD 24 HR (Diltiazem CD 24 HR) 240 Mg Caper 240 MG PO DAILY, #30 CAP Metoprolol Tartrate (Metoprolol Tartrate) 25 Mg Tab 25 MG PO Q8H, #90 TAB Changed Medications: Prednisone (21) 10 mg tab Dose Pack (Prednisone (21) 10 mg tab Dose Pack) 10 Mg Pack 10 MG PO DIRECTED for Inflammation, #1 DSPK 0 Refills (Changed from: Prednisone 5 Mg Tab 5 Mg PO DAILY Ref 0) Continued Medications: Aspirin (Aspirin) 325 Mg Tab 325 MG PO DAILY, #30 TAB 0 Refills Benzonatate (Tessalon Perles) 100 Mg Cap 100 MG PO TID PRN for COUGH, #30 CAP 0 Refills (This prescription has been renewed) Buspirone (Buspirone) 5 Mg Tab 5 MG PO TID for Anxiety, TAB 0 Refills Docusate Sodium (Docusate Sodium) 100 Mg Cap 100 MG PO DAILY for Prevent Constipation, #60 CAP 0 Refills Fluticasone Propionate Inh (Armonair Respiclick Inh) 55 Mcg/Actuation Aer.pow.ba 55 MG INH BID for Asthma Management, INH 0 Refills Meclizine (Meclizine) 12.5 Mg Tab 12.5 MG PO TID PRN for VERTIGO, TAB 0 Refills Metformin (Metformin) 850 Mg Tab 850 MG PO TIDPC for Blood Sugar Management, TAB 0 Refills Polyethylene Glycol 3350 Powder (Polyethylene Glycol 3350 Powder) 17 Gram Pow 17 GM PO DAILY for Constipation, #1 BOTTLE 0 Refills Primidone (Primidone) 50 Mg Tab 50 MG PO BID for Control Seizures, #60 TAB 0 Refills Sertraline (Sertraline) 100 Mg Tab 100 MG PO DAILY, #30 TAB 0 Refills Simvastatin (Simvastatin) 40 Mg Tab 40 MG PO HS for Cholesterol Management, #30 TAB 0 Refills Sitagliptin (Januvia) 100 Mg Tab 100 MG PO DAILY for Blood Sugar Management, #30 TAB 0 Refills Trazodone (Trazodone) 50 Mg Tab 50 MG PO HS for Control Depression, #30 TAB 0 Refills Discontinued Medications: Betamethasone Valerate Topical (Betamethasone Valerate Topical) 0.1% Cream 1 APPLIC TOPICAL BID for Dermatoses, #15 GM 0 Refills Enalapril (Enalapril) 2.5 Mg Tab 2.5 MG PO DAILY, #30 TAB 0 Refills Ketoconazole Topical (Ketoconazole Topical) 2% Cream 1 APPLIC TOPICAL BID for Fungal Infection, #15 GM 0 Refills Levofloxacin (Levaquin) 500 Mg Tablet 500 MG PO DAILY for Infection, TAB 0 Refills Propranolol (Propranolol) 20 Mg Tab 20 MG PO BID, #60 TAB 0 Refills Triamcinolone Topical (Triamcinolone Topical) 0.1 % Oint 1 APPLIC TOPICAL BID for Inflammation, GM 0 Refills Shaun Francois MD Nov 21, 2017 11:14
[2017-11-21] MEDS ORDERED: WALKER WHEELS/F1 MIS (11:16)
== END 2017-11-21 14:49 | disposition home health service (06) | DRG 308 ==
LOC: NEPE 11:32 → NEDA 14:00 → NEDH 20:24 → HCIS 11-18 00:24
PROVIDERS: ADMIT Family Medicine; ATTEND Family Medicine
DX: I48.91 Unspecified atrial fibrillation (principal); J18.9 Pneumonia, unspecified organism; N17.9 Acute kidney failure, unspecified; I10 Essential (primary) hypertension; E11.9 Type 2 diabetes mellitus without complications; Z79.84 Long term (current) use of oral hypoglycemic drugs; E78.5 Hyperlipidemia, unspecified; G25.0 Essential tremor; F32.9 Major depressive disorder, single episode, unspecified; F41.9 Anxiety disorder, unspecified; Z79.82 Long term (current) use of aspirin; H91.90 Unspecified hearing loss, unspecified ear; E66.9 Obesity, unspecified; Z68.30 Body mass index [BMI] 30.0-30.9, adult; Z66 Do not resuscitate; Z87.891 Personal history of nicotine dependence
CPT/HCPCS: 71045; 80048; 80053; 82550; 82552; 82948; 83735; 83880; 84484; 85025; 85027; 85610; 85730; 87040; 93005; 93306; 94002; 94640; 94664; 94667; 94668; 96365; 96366; 96368; J0282; J0456; J0696; J1644; J1815; J7030; J7040; J7050